=== PATIENT | male | born 1960 | race African-American/Black ===

== ENCOUNTER 2022-02-09 09:50 | Inpatient (IN) | payer OTHER ==
[2022-02-09 10:56] LABS: #Eosinphils 0.1 thou/uL (0.0-0.7); #Lymphocytes 1.1 thou/uL (1.20-3.40); #Monocytes 0.5 thou/uL (0.11-0.59); #Neutrophils 5.1 thou/uL (1.40-6.50); %Basophils 0.6 % (0.0-1.0); %Eosinophils 1.2 % (0.0-10.0); %Lymphocytes 16.5 % (21.0-51.0); %Monocytes 7.4 % (0.0-10.0); %Neutrophils 74.3 % (42.0-75.0); Hemoglobin 13.8 g/dL (14.0-18.0); Mean Corpuscular HGB CONC 31.6 g/dL (32.0-36.0); Mean Corpuscular Hemoglobin 30.3 pg (27.0-31.0); Mean Corpuscular Volume 95.8 fL (78.0-98.0); Platelet Count 195 thou/uL (130-400); RBC Distribution Width 13.6 % (11.5-14.5); Red Blood Cell (RBC) Count 4.55 mill/uL (4.70-6.10); White Blood Cell (WBC) Count 6.9 thou/uL (4.8-10.8)
[2022-02-09 11:11] LABS: Digoxin Less than 0.15 ng/mL (0.8-2.0)
[2022-02-09 11:15] LABS: ALT (SGPT) 23 U/L (8-55); AST (SGOT) 35 U/L (5-34); Albumin 4.2 g/dL (3.5-5.0); Alkaline Phosphatase 49 U/L (40-110); Anion Gap 14 mmol/L (10-20); BUN (Urea Nitrogen) 19 mg/dL (8.4-25.7); Bilirubin, Total 0.6 mg/dL (0.2-1.2); Calc. Creatinine Clearance 0 mL/min (70-130); Calcium 8.8 mg/dL (7.8-10.44); Carbon Dioxide 25 mmol/L (22-29); Chloride 108 mmol/L (98-107); Estimated GFR 58; Globulin 2.7 g/dL (2.4-3.5); Glucose 79 mg/dL (70-105); Lipase 18 U/L (8-78); Potassium 4.3 mmol/L (3.5-5.1); Protein, Total 6.9 g/dL (6.0-8.3); Sodium 143 mmol/L (136-145)
[2022-02-09] MEDS ORDERED: Aspirin Chewable 81 MG TAB ONE (11:31)
[2022-02-09] MEDS ORDERED: cefTRIAXone\\ROCEPHIN 2 GM VIAL ONE (13:16)
[2022-02-09] MEDS ORDERED: Acetaminophen 325 MG TAB PO PRN (14:00)
[2022-02-09] MEDS ORDERED: Azithromycin 500 MG VIAL ONE (14:30)
[2022-02-09] MEDS ORDERED: Iopamidol-370 76% 500 ML 1 ML ONE (14:47)
[2022-02-09 17:03] VITALS: BMI 24.3
[2022-02-09] MEDS: Sodium Chloride 0.9% 1,000 ML IV SCH (17:43)
[2022-02-09 18:30] LABS: SARS-CoV-2 NAA Rapid Test Not Detected (NotDetected)
[2022-02-09] MEDS: Aripiprazole 10 MG TAB PO SCH (20:40)
[2022-02-10 04:52] LABS: #Eosinphils 0.1 thou/uL (0.0-0.7); #Lymphocytes 1.8 thou/uL (1.20-3.40); #Monocytes 0.4 thou/uL (0.11-0.59); #Neutrophils 3.2 thou/uL (1.40-6.50); %Basophils 0.3 % (0.0-1.0); %Eosinophils 2.1 % (0.0-10.0); %Lymphocytes 32.2 % (21.0-51.0); %Monocytes 7.5 % (0.0-10.0); %Neutrophils 57.8 % (42.0-75.0); Hemoglobin 11.8 g/dL (14.0-18.0); Mean Corpuscular HGB CONC 31.5 g/dL (32.0-36.0); Mean Corpuscular Hemoglobin 30.1 pg (27.0-31.0); Mean Corpuscular Volume 95.4 fL (78.0-98.0); Mean Platelet Volume 7.1 fL (7.4-10.4); Platelet Count 185 thou/uL (130-400); RBC Distribution Width 13.6 % (11.5-14.5); Red Blood Cell (RBC) Count 3.91 mill/uL (4.70-6.10); White Blood Cell (WBC) Count 5.5 thou/uL (4.8-10.8)
[2022-02-10 04:59] LABS: Anion Gap 12 mmol/L (10-20); BUN (Urea Nitrogen) 17 mg/dL (8.4-25.7); Calc. Creatinine Clearance 69 mL/min (70-130); Calcium 8.5 mg/dL (7.8-10.44); Carbon Dioxide 24 mmol/L (22-29); Chloride 110 mmol/L (98-107); Estimated GFR 70; Glucose 89 mg/dL (70-105); Potassium 3.9 mmol/L (3.5-5.1); Sodium 142 mmol/L (136-145)
[2022-02-10] MEDS: Aspirin 81 mg Enteric Coated Tablet PO SCH (09:58)
[2022-02-10] MEDS: Levothyroxine Sodium 88 MCG TAB PO SCH (09:58)
[2022-02-10] MEDS: Enoxaparin Sodium 40 MG/0.4 ML SYRINGE SC SCH (09:59)
[2022-02-10] MEDS: Atorvastatin Calcium 40 MG TAB PO SCH (09:59)
[2022-02-10] MEDS: Finasteride 5 MG TAB PO SCH (09:59)
[2022-02-10] MEDS: Losartan 25 MG TAB PO SCH (10:00)
[2022-02-10] MEDS: Tamsulosin HCl 0.4 MG CAP PO SCH (10:02)
[2022-02-10] MEDS: Sodium Chloride 0.9% 1,000 ML IV SCH (11:44)
[2022-02-10] MEDS ORDERED: methylPREDNISolone Sod Succ 40 MG VIAL IVP SCH (12:00)
[2022-02-10] MEDS ORDERED: cefTRIAXone\\ROCEPHIN 1 GM in Sodium Chloride 0.9% 100 ML IVPB SCH (13:00)
[2022-02-10] MEDS ORDERED: Azithromycin 500 MG in Sodium Chloride 0.9% 250 ML 250 ML IVPB SCH (15:00)
[2022-02-10] MEDS: Aripiprazole 10 MG TAB PO SCH (21:15)
[2022-02-11] MEDS: Sodium Chloride 0.9% 1,000 ML IV SCH (05:16)
[2022-02-11 05:33] LABS: #Lymphocytes 1.6 thou/uL (1.20-3.40); #Monocytes 0.5 thou/uL (0.11-0.59); #Neutrophils 4.7 thou/uL (1.40-6.50); %Basophils 0.2 % (0.0-1.0); %Eosinophils 0.3 % (0.0-10.0); %Lymphocytes 23.7 % (21.0-51.0); %Neutrophils 68.9 % (42.0-75.0); Hemoglobin 10.9 g/dL (14.0-18.0); Mean Corpuscular HGB CONC 31.2 g/dL (32.0-36.0); Mean Corpuscular Hemoglobin 29.9 pg (27.0-31.0); Mean Corpuscular Volume 95.7 fL (78.0-98.0); Mean Platelet Volume 7.1 fL (7.4-10.4); Platelet Count 184 thou/uL (130-400); RBC Distribution Width 13.6 % (11.5-14.5); Red Blood Cell (RBC) Count 3.66 mill/uL (4.70-6.10); White Blood Cell (WBC) Count 6.9 thou/uL (4.8-10.8)
[2022-02-11 06:06] LABS: Anion Gap 11 mmol/L (10-20); BUN (Urea Nitrogen) 19 mg/dL (8.4-25.7); Calc. Creatinine Clearance 62 mL/min (70-130); Calcium 8.5 mg/dL (7.8-10.44); Carbon Dioxide 25 mmol/L (22-29); Chloride 110 mmol/L (98-107); Estimated GFR 63; Glucose 147 mg/dL (70-105); Potassium 4.2 mmol/L (3.5-5.1); Sodium 142 mmol/L (136-145)
[2022-02-11 08:20] VITALS: BP 111/82; TEMP 97.6
[2022-02-11] MEDS ORDERED: methylPREDNISolone Sod Succ 40 MG VIAL IVP SCH (09:00)
[2022-02-11] MEDS: Enoxaparin Sodium 40 MG/0.4 ML SYRINGE SC SCH (09:14)
[2022-02-11] MEDS: Atorvastatin Calcium 40 MG TAB PO SCH (09:15)
[2022-02-11] MEDS: Tamsulosin HCl 0.4 MG CAP PO SCH (09:15)
[2022-02-11] MEDS: Aspirin 81 mg Enteric Coated Tablet PO SCH (09:15)
[2022-02-11] MEDS: Losartan 25 MG TAB PO SCH (09:15)
[2022-02-11] MEDS: Finasteride 5 MG TAB PO SCH (09:15)
[2022-02-11] MEDS: Levothyroxine Sodium 88 MCG TAB PO SCH (09:15)
== END 2022-02-11 11:15 | disposition home or self-care (01) | DRG 871 ==
LOC: ERS 09:50 → ERHOLD 13:31 → 2SW 16:32 → OBSVTOIN 02-10 16:07
PROVIDERS: ADMIT Internal Medicine; ATTEND Student in an Organized Health Care Education/Training Program
DX: A41.9 Sepsis, unspecified organism (principal); J18.9 Pneumonia, unspecified organism; I42.8 Other cardiomyopathies; N17.9 Acute kidney failure, unspecified; I10 Essential (primary) hypertension; E78.5 Hyperlipidemia, unspecified; E03.9 Hypothyroidism, unspecified; N40.0 Benign prostatic hyperplasia without lower urinary tract symptoms; F41.9 Anxiety disorder, unspecified; F32.A Depression, unspecified; I44.7 Left bundle-branch block, unspecified; Z20.822 Contact with and (suspected) exposure to COVID-19; E78.00 Pure hypercholesterolemia, unspecified; Z79.82 Long term (current) use of aspirin; Z79.899 Other long term (current) drug therapy
CPT/HCPCS: 36415; 71045; 71275; 80048; 80053; 80162; 83605; 83690; 83735; 83880; 84443; 84484; 85025; 85379; 87040; 93005; 96365; 96367; 96372; 96375; 96376; G0378; J0456; J0696; J1650; J2920; J3490; J7050; Q9967

== ENCOUNTER 2022-11-22 05:01 | Emergency (ER) | payer OTHER ==
[2022-11-22] MEDS ORDERED: Lidocaine 1% PF 5 ML VIAL ONE (05:22)
== END 2022-11-22 05:55 | disposition home or self-care (01) ==
LOC: ERS 05:01
DX: H61.21 Impacted cerumen, right ear (principal); E03.9 Hypothyroidism, unspecified; E78.00 Pure hypercholesterolemia, unspecified; I10 Essential (primary) hypertension
CPT/HCPCS: 99282